=== PATIENT | male | born 1955 | race Caucasian/White ===

== ENCOUNTER → 2019-09-11 | Outpatient (CLI) | payer MEDICAID, MEDICARE | END | disposition home or self-care (01) | LOC: LABPAT 10:47 | PROVIDERS: ATTEND Orthopaedic Surgery | DX: Z01.812 Encounter for preprocedural laboratory examination (principal) | CPT/HCPCS: 87070 ==

== ENCOUNTER 2019-09-24 06:21 | Day surgery (SDC) | payer MEDICAID, MEDICARE ==
[2019-09-20 15:12] VITALS: BMI 31.4
--- NOTE | 2019-09-23 09:39 | HP ---
HISTORY AND PHYSICAL CHIEF COMPLAINT: Right knee pain. HISTORY OF PRESENT ILLNESS: The patient is a 64-year-old retired gentleman who presents with progressive right knee pain for the past couple years. It has worsened recently. He notes giving way along with swelling and stiffness. He has tried medications in addition to previous injections with only partial temporary relief. He notes he has been limping. PAST MEDICAL HISTORY: Significant for arthritis, hypertension, type 2 diabetes. PAST SURGICAL HISTORY: Significant for rotator cuff repair and cataract removal. CURRENT MEDICATIONS: 1. Clonidine. 2. Metoprolol. 3. Ranitidine. FAMILY HISTORY: Significant for cancer. SOCIAL HISTORY: Significant for chewing tobacco use. REVIEW OF SYSTEMS: Sixteen point review of systems otherwise reviewed and is noncontributory. PHYSICAL EXAMINATION: On examination, the patient is approximately 6 feet 2 inches, 230 pounds of endomorphic habitus. HEENT exam is nonfocal. Neck is supple. He has painless passive motion of the right hip. Straight leg raise is negative. Active motion right knee -12 to 115 degrees of flexion. He has a mild effusion. He is tender about the medial greater than lateral joint line. Collaterals are stable. Penelope's negative. Beba's is equivocal. His distal neurovascular exam appears intact except for stocking paresthesias bilaterally. Weightbearing notch lateral and Merchant views of the right knee obtained in the office show severe medial compartment narrowing. IMPRESSION: 1. Right knee severe medial compartment osteoarthrosis. 2. Pto-mrbtgqh-layyhjrvh diabetes. 3. History of renal disease. RECOMMENDATIONS: I talked to the patient at length regarding his condition along with treatment options. At this point, he remains quite symptomatic despite conservative measures. After thorough discussion, he opts to proceed with surgery. We will plan to proceed with right total knee arthroplasty. Risks and benefits were discussed at length in layman's terms. We will institute DVT prophylaxis postoperatively. The patient underwent preoperative medical evaluation by Dr. Briceno. SANA / ZACHERY: [id number] /
[~2019-09-24 06:21] MED LIST: ACETAMINOPHEN TAB 500 MG TAB PO ONE; DEXAMETHASONE SOD PHOSPHATE 10 MG/ML 1 ML VIAL IV ONE; HYDROmorphone 0.5 MG/0.5 ML SYRINGE IVP PRN; LIDOCAINE 1% 20 ML VIAL (10MG/ML) FOR IV START INTRADERMA PRN; MELOXICAM 7.5 MG TAB PO ONE; MIDAZOLAM 2 MG/2 ML VIAL IV PRN; ONDANSETRON 4 MG/2 ML VIAL IVP ONE; SCOPOLAMINE 1.5MG/72HR PATCH TRANSDERM ONE; TRANEXAMIC ACID 1,000 MG in SODIUM CHLORIDE 0.9% 100 ML IVPB ONE
[2019-09-24 07:11] LABS: Glucose,Whole Blood 161 mg/dL (75-99)
[2019-09-24] MEDS: LACTATED RINGERS 1,000 ML IV SCH (07:15)
[2019-09-24] MEDS ORDERED: TRANEXAMIC ACID 1,000 MG/10 ML VIAL ONE (08:13)
[2019-09-24] MEDS ORDERED: ePHEDrine SULFATE/0.9% NACL/PF 50 MG/5 ML SYRINGE IV ONE (08:13)
[2019-09-24] MEDS ORDERED: SODIUM CHLORIDE 0.9% 100 ML BAG ONE (08:13)
[2019-09-24] MEDS ORDERED: PROPOFOL 10 MG/ML 20 ML VIAL IV ONE (08:13)
[2019-09-24] MEDS ORDERED: fentaNYL (PF) 50 MCG/ML 2 ML AMP ONE (08:13)
[2019-09-24] MEDS ORDERED: MIDAZOLAM 2 MG/2 ML VIAL ONE (08:13)
[2019-09-24] MEDS ORDERED: ROPIVACAINE 246.25 MG, EPINEPHrine 0.5 MG, KETOROLAC 30 MG, cloNIDine HCL/PF 80 MCG, WA... MISCELLANE ONE ×5 (08:19)
[2019-09-24] MEDS ORDERED: ceFAZolin 3,000 MG in SODIUM CHLORIDE 0.9% IRRIGATIO 3,000 ML IRRIGATION ONE (08:52)
[2019-09-24] MEDS ORDERED: LACTATED RINGERS 1,000 ML IV ONE (09:18)
[2019-09-24] MEDS ORDERED: traMADol 50 MG TAB PO PRN (09:47)
[2019-09-24] MEDS ORDERED: HYDROmorphone 0.5 MG/0.5 ML SYRINGE IVP PRN (09:47)
[2019-09-24] MEDS ORDERED: ONDANSETRON 4 MG/2 ML VIAL IVP PRN (09:47)
[2019-09-24] MEDS ORDERED: ACETAMINOPHEN TAB 325 MG TAB PO PRN (09:47)
[2019-09-24] MEDS ORDERED: HYDROcodone/APAP 7.5-325MG 1 EACH TAB PO PRN ×2 (09:47→09:49)
[2019-09-24] MEDS ORDERED: MAGNESIUM HYDROXIDE 2,400 MG/10 ML CUP PO PRN (09:47)
[2019-09-24] MEDS ORDERED: NALOXONE 0.4 MG/ML 1 ML VIAL IV PRN (09:47)
--- NOTE | 2019-09-24 10:14 | P.OP ---
Date of Procedure: 09/24/19 Preoperative Diagnosis: Right knee severe tricompartmental osteoarthrosis Postoperative Diagnosis: Same Procedure(s) Performed: Right total knee arthroplastycementedcruciate retaining Implants: Depuy Attune size 8 cemented femoral component, size 8 cemented tibial component, 9 mm articular surface, 38 mm cemented patellar component. This was a cruciate retaining implant. Anesthesia: regional, local, spinal Surgeon: Andrew Fung Tool Design Draftsperson #1: Keyur Thompson Estimated Blood Loss (ml): 50 Pathology: other (Bone fragments) Condition: stable Disposition: PACU Indications for Procedure: The patient is a 64-year-old gentleman who presents with progressive right knee pain secondary to osteoarthrosis despite conservative measures. A discussion of the risks and benefits of operative intervention versus continued conservative measures was made with the patient. He opted to proceed with surgery. Operative risks to include infection, neurovascular injury, development of blood clots, possible component loosening, possible component failure and need for subsequent procedures was discussed. Informed consent was obtained. Operative Findings: As below Description of Procedure: The patient was brought to the operating room, and after induction of spinal anesthesia the right lower extremity was prepped and draped in a normal fashion. The tourniquet was inflated to 270 mmHg. A longitudinal incision extending 3 finger breaths above the superior pole of the patella extending to the medial aspect the tibial tubercle was then made. The skin and subcutaneous tissues were divided sharply. Electrocautery was used for hemostasis. A medial parapatellar arthrotomy was then performed. The medial soft tissues to include the superficial and deep portions of the medial collateral ligament as well as the medial hamstring tendons were elevated subperiosteally. The proximal medial tibia osteophytes were carefully removed. The patella was everted. The knee was flexed. A portion of the retropatellar fat pad was excised sharply. The anterior cruciate ligament was sacrificed. A starting hole was made in the distal femur 1 cm anterior to the posterior cruciate origin. An intramedullary femoral guide was gently inserted planning on 5 valgus distal cut with 9 mm distal resection. The cutting block was pinned in place. The distal cut was then made. The posterior referencing sizing guide was utilized. 3 of external rotation was built into the system and verified off the trans- epicondylar axis and the posterior condyles. I felt size 8 was most appropriate. The cutting block was pinned in place. The anterior, posterior, and chamfer cuts were then made. The bone fragments were removed. A sulcus cut was then made with the appropriate guide. The trial size 8 femoral component was then placed and was fully seated. There was good anterior to posterior and medial to lateral fit. The distal peg holes were then drilled. The trial c omponent was then removed. Attention was then paid towards preparing the proximal tibia. An extra medullary guide was utilized in line with the tibial shaft and second metatarsal distally. A 7 posterior slope was planned. I planned on 2 mm resection from the medial compartment. The cutting block was pinned in place. The proximal tibial cut was then made. The bone was removed in one fragment. The remnants of the medial and lateral menisci were excised the capsule junction with electrocautery. The tibia sized most appropriately at size 8. The posterior osteophytes off the distal femur were carefully removed with a curved osteotome. The trial tibial and femoral components were placed along with a 9 millimeters articular surface. I was able to obtain full flexion and extension with good stability with varus and valgus stress. After several flexion and extension cycles, the tibial rotation was marked with electrocautery in line with the medial one third of the tibial tubercle. Attention was then paid towards preparing the patella. A patella reamer was utilized taking this down to 14 mm of bone stock. A good flush cut was made. The patella sized most appropriately at 38 millimeters. The peg holes were then drilled. The trial component was placed. The knee was taken through a range of motion. I had good patellofemoral tracking with no hands technique. The trial components were then removed. The tibia was prepared in the appropriate rotation with appropriate drill and keel punch. The flexion and extension gaps were checked and felt to be symmetric. The posterior soft tissues were injected with ropivacaine. The bony surfaces were prepared with pulsatile lavage and dried. The deep tibial component was then cemented in place and was fully seated. Excess cement was removed. The femoral component was cemented in place and was fully seated. Again excess cement was removed. The trial 9 millimeters surface was then inserted in the knee was put in full extension. The patella component was cemented in place. After the cement had sufficiently hardened, the knee was again taken through a range of motion. Again there was good stability in flexion and extension with varus and valgus stress. The trial articular surface was then removed. The final articular surface was placed and was impacted. Care was taken to avoid any soft tissue interposition. Pulsatile lavage was again utilized. The tourniquet was deflated with approximately 60 minutes total tourniquet time. There was minimal drainage therefore a deep drain was not placed. The medial parapatellar arthrotomy was then closed with #2 Ethibond suture. The subcutaneous tissues were reapproximated interrupted 2-0 Vicryl sutures. The skin was reapproximated with 3-0 subarticular strata fix suture. Skin tape and adhesive was applied. A sterile dressing was applied. The patient was then awoken from sedation and transferred to recovery room in good condition. Blood loss was estimated at 50 milliliters. No complications were incurred. Sponge and needle counts were correct at the end the case. Carroll PHILLIPS assisted during the major components this case to include exposure, bone resection, and implantation.
[2019-09-24] MEDS ORDERED: ROPIVACAINE 0.2%-NS ON-Q PUMP 1,090 MG, EMPTY PAIN BALL 1 EACH MISCELLANE PRN (10:20)
--- NOTE | 2019-09-24 10:48 | XR ---
Limited right knee HISTORY: Status post right knee arthroplasty 2 views of the right knee Patient is status post right knee arthroplasty. Alignment is maintained. There are vascular calcifica tions noted. Lucencies present in the soft tissues. IMPRESSION: Orthopedic follow-up.
[2019-09-24 10:56] LABS: Glucose,Whole Blood 183 mg/dL (75-99)
--- NOTE | 2019-09-24 15:39 | P.CONS ---
History of Present Illness - Reason for Consult Consult date: 09/24/19 diabetes management Requesting physician: Andrew Fung - Chief Complaint right knee pain - History of Present Illness Patient is a 64-year-old male past medical history of hypertension, diabetes mellitus type 2 insulin requiring, arthritis, GERD, degenerative disc disease who presented to the hospital for elective right total knee arthroplasty. He had failed conservative management of his right knee pain. Patient seen and examined at bedside with family present. He denies any recent cough, cold, fever, flu, nausea vomiting, or shortness of breath. He typically takes insulin for his diabetes but states that his takes care of the dosing. He is currently not having any postoperative pain, shortness of breath, lightheadedness, dizziness, or chest pain. He is feeling well and wants to go home. Review of Systems Pertinent positives and negatives as discussed in HPI, a complete review of systems was performed and all other systems are negative. Past Medical History Past Medical History: Diabetes Mellitus, GERD/Reflux, Hypertension, Osteoarthritis (OA) Additional Past Medical History / Comment(s): "Toes feel cold," R/T DM. DDD in back. History of Any Multi-Drug Resistant Organisms: None Reported Past Surgical History: Orthopedic Surgery, Tonsillectomy Additional Past Surgical History / Comment(s): Rt shoulder rotator cuff. Colonoscopy. Jack Cataracts Past Anesthesia/Blood Transfusion Reactions: No Reported Reaction Past Psychological History: No Psychological Hx Reported Smoking Status: Former smoker Past Alcohol Use History: None Reported Additional Past Alcohol Use History / Comment(s): Sober for 3 years Past Drug Use History: None Reported Additional History: Chews tobacco, quit smoking 1996. Lives with his , no cane/walker prior to surgery - Past Family History Brother(s) Family Medical History: Cancer Additional Family Medical History / Comment(s): Colon CA Medications and Allergies Home Medications Medication Instructions Recorded Confirmed Type Aspirin [Adult Low Dose Aspirin EC] 81 mg PO DAILY 09/29/15 09/24/19 History Metoprolol Tartrate [Lopressor] 50 mg PO BID 09/29/15 09/24/19 History Naproxen Sodium [Aleve] 220 mg PO BID 09/29/15 09/24/19 History Ranitidine HCl 150 mg PO BID 09/29/15 09/24/19 History cloNIDine HCL [Catapres] 0.2 mg PO DAILY 09/29/15 09/24/19 History Glimepiride [Amaryl] 1 mg PO BID 08/24/17 09/24/19 History Insulin Lispro Protamin/Lispro 10 unit SQ AC-SUPPER 08/24/17 09/24/19 History [humaLOG Mix 75-25 Kwikpen] Hydrochlorothiazide [Hydrodiuril] 12.5 mg PO DAILY 09/20/19 09/24/19 History Insulin NPL/Insulin Lispro 20 unit SQ AC-BRKFST 09/20/19 09/24/19 History [humaLOG MIX 75-25 VIAL] Losartan Potassium [Cozaar] 100 mg PO DAILY 09/20/19 09/24/19 History [place]-3 Fatty Acids/Fish Oil [Fish 1 each PO DAILY 09/20/19 09/24/19 History Oil 1,000 mg Softgel] amLODIPine BESYLATE 5 mg PO DAILY 09/20/19 09/24/19 History Allergies Allergy/AdvReac Type Severity Reaction Status Date / Time No Known Allergies Allergy Verified 09/24/19 06:55 Physical Exam Osteopathic Statement: *. No significant issues noted on an osteopathic structural exam other than those noted in the History and Physical/Consult. Vitals: Vital Signs Temp Pulse Pulse Resp BP Pulse Ox 09/24/19 14:05 97.5 F L 80 17 123/77 91 L 09/24/19 13:15 78 16 123/80 97 09/24/19 12:45 42 L 16 119/80 97 09/24/19 12:00 78 16 130/80 97 09/24/19 11:30 74 16 109/72 96 09/24/19 10:53 72 15 112/73 97 09/24/19 10:38 72 14 117/75 100 09/24/19 10:23 71 16 116/78 100 09/24/19 10:08 97.0 F L 75 13 123/72 97 09/24/19 07:44 62 16 108/58 98 09/24/19 07:10 97.0 F L 62 16 128/80 96 Intake and Output 09/24/19 09/24/19 09/24/19 06:59 14:59 22:59 Intake Total 1851 Output Total 50 Balance 1801 Intake: IV 1851 Output: Estimated Blood Loss 50 Other: # Voids 0 Weight 110 kg General: non toxic, no distress, appears at stated age, obese Derm: no unusual rashes/lesions no unusual ecchymoses, warm, dry Head: atraumatic, normocephalic, symmetric Eyes: EOMI, no lid lag, anicteric sclera, pupils equal round reactive to light ENT: Nose and ears atraumatic, no thrush, no pharyngeal erythema Neck: No thyromegaly, no cervical lymphadenopathy, trachea midline, supple Mouth: no lip lesion, mucus membranes moist Cardiovascular: S1S2 reg, no murmur, positive posterior tibial pulse bilateral, no edema, capillary refill less than 2 seconds Lungs: CTA bilateral, no rhonchi, no rales , no accessory muscle use Abdominal: soft, nontender to palpation, no guarding, no appreciable organomegaly, normal bowel sounds Ext: right leg with dressing in place, no gross muscle atrophy, muscle strength 5 out of 5 in upper extremities grossly, no contractures, Neuro: CN II-XI grossly intact, light touch intact all 4 extremities, finger to nose within normal limits, Psych: Alert, oriented, appropriate affect Results Labs: Abnormal Lab Results - Last 24 Hours (Table) 09/24/19 09/24/19 Range/Units 07:10 10:49 POC Glucose (mg/dL) 161 H 183 H (75-99) mg/dL Assessment and Plan Assessment: Patient is a 64-year-old male status post right total knee arthroplasty. Pain management, PT/OT, DVT prophylaxis per ortho. DM 2, insuling requiring - hold amaryl - continue with 70/30, add SSI, follow BS - A1C 8.2 09/16/19 HTN - resume home lopressor, amlodipine and coaar - home HCTZ due t fluid shifts today adn resume in AM - COntinue with catapres to avoid rebound HTN GERD - Continue H2 teddy Obesity with BMI 30.7 - structured outpatient weight loss Thank you for allowing us to participate in the care of this pleasant patient. Do not hesitate to contact us with questions. Someone can be reached from the [facility] hospitalist group all hours of the day at [phone] or via perfect serve.
[2019-09-24 16:53] LABS: Glucose,Whole Blood 298 mg/dL (75-99)
[2019-09-24] MEDS: INSULIN ASPART (NovoLOG) 100 UNIT/ML VIAL SQ SCH (16:58)
[2019-09-24] MEDS ORDERED: INSULN ASP PRT/INSULIN ASPART 100 UNIT/ML 10 ML VIAL SQ SCH (17:30)
--- NOTE | 2019-09-24 20:29 | P.ANPRN ---
Procedure Note - Anesthesia - Nerve Block Performed Right Adductor Canal Infusion Time Out Performed: Yes Date of Procedure: 09/24/19 Procedure Start Time: :24 Procedure Stop Time: 07:33 Location of Patient: PreOp Indication: Acute Post-Operative Pain, Requested by Surgeon Sedation Type: Sedate with meaningful contact maintained Preparation: Sterile Prep, Sterile Dressing Position: Supine Catheter: Indwelling Needle Types: Pajunk Needle Gauge: 21 Ultrasound used to visualize needle placement: Yes Ultrasound used to observe medication spread: Yes Blood Aspirated: No Pain Paresthesia on Injection Noted: No Resistance on Injection: Normal Image Stored and Saved: Yes Events: Uneventful and Well Tolerated (ropi .5% 20cc plus dexamethasone 4mg)
[2019-09-24] MEDS: METOPROLOL TARTRATE 50 MG TAB PO SCH (20:36)
[2019-09-24] MEDS: FAMOTIDINE 20 MG TAB PO SCH (20:37)
[2019-09-24] MEDS ORDERED: SENNOSIDES-DOCUSATE SODIUM 1 EACH TAB PO SCH (21:00)
[2019-09-25] MEDS: LACTATED RINGERS 1,000 ML IV SCH (01:14)
[2019-09-25 01:16] LABS: Glucose,Whole Blood 412 mg/dL (75-99)
[2019-09-25] MEDS ORDERED: INSULIN ASPART (NovoLOG) 100 UNIT/ML VIAL SQ ONE (01:38)
--- NOTE | 2019-09-25 05:27 | P.PN ---
Progress Note - Text 09/25 64 year old male status post total knee replacement by Dr. Fung. Patient has an On-Q pump for postop pain control with the solution running at 8 mL an hour with a VAS of 8 and doing very well plan to continue On-Q pump infusion
[2019-09-25 06:48] LABS: Glucose,Whole Blood 258 mg/dL (75-99)
[2019-09-25] MEDS ORDERED: INSULN ASP PRT/INSULIN ASPART 100 UNIT/ML 10 ML VIAL SQ SCH (07:30)
[2019-09-25 07:41] LABS: Basophils % (A) 0 %; Eosinophils % (A) 0 %; HCT 38.6 % (39.0-53.0); Lymphocytes # (A) 1.5 k/uL (1.0-4.8); Lymphocytes % (A) 10 %; MCH 31.6 pg (25.0-35.0); MCHC 33.8 g/dL (31.0-37.0); MCV 93.7 fL (80.0-100.0); Mean Platelet Volume 8.8; Monocytes # (A) 0.8 k/uL (0-1.0); Monocytes % (A) 5 %; Neutrophils % (A) 84 %; Platelet Count 334 k/uL (150-450); RBC 4.12 m/uL (4.30-5.90); RDW 12.9 % (11.5-15.5); WBC 15.5 k/uL (3.8-10.6)
[2019-09-25 07:49] VITALS: BP 128/75; PULSE 61; RESP 16; TEMP 98.5
[2019-09-25] MEDS: INSULIN ASPART (NovoLOG) 100 UNIT/ML VIAL SQ SCH ×2 (07:52→12:26)
[2019-09-25] MEDS: METOPROLOL TARTRATE 50 MG TAB PO SCH (07:53)
[2019-09-25] MEDS: FAMOTIDINE 20 MG TAB PO SCH (07:54)
[2019-09-25] MEDS ORDERED: LOSARTAN 50 MG TAB PO SCH (09:00)
[2019-09-25] MEDS ORDERED: cloNIDine HCL 0.1 MG TAB PO SCH (09:00)
[2019-09-25] MEDS ORDERED: amLODIPine 5 MG TAB PO SCH (09:00)
[2019-09-25] MEDS ORDERED: RIVAROXABAN 10 MG TAB PO SCH (09:00)
[2019-09-25 11:40] LABS: Glucose,Whole Blood 344 mg/dL (75-99)
--- NOTE | 2019-09-25 12:07 | P.PN ---
Subjective Progress Note Date: 09/25/19 Principal diagnosis: status post right total knee arthroplasty patient evaluated at bedside, he is resting comfortably. His family members present. He is done well with therapy. Denies chest pain or shortness of breath. Objective - Vital Signs Vital signs: Vital Signs Temp 98.5 F 09/25/19 07:00 Pulse 61 09/25/19 07:00 Resp 16 09/25/19 07:00 BP 128/75 09/25/19 07:00 Pulse Ox 92 L 09/25/19 07:00 Intake & Output 09/24/19 09/25/19 09/25/19 18:59 06:59 18:59 Intake Total 1851 1660 180 Output Total 450 Balance 1401 1660 180 Weight 110 kg Intake: IV 1851 Intake, IV Titration 500 Amount Lactated Ringers 1,000 ml 500 @ 50 mls/hr IV .Q20H ANI Rx#:[id number] Oral 1160 180 Output: Urine 400 Estimated Blood Loss 50 Other: Voiding Method Urinal # Voids 0 1 - Exam right lower extremity: Incision is clean, dry, and intact. The exofin fusion tape is in good condition. There is minimal soft tissue swelling and ecchymosis surrounding the medial and lateral aspects of the incision. Calf is soft, no tenderness with palpation. Plantar flexion, dorsiflexion, EHL, FHL are intact. Sensory exam to light touch throughout the extremity is intact, dorsal pedis pulses 2+. - Labs CBC & Chem 7: 09/25/19 07:19 Labs: Abnormal Lab Results - Last 24 Hours (Table) 09/24/19 09/25/19 09/25/19 Range/Units 16:52 01:14 06:46 WBC (3.8-10.6) k/uL RBC (4.30-5.90) m/uL Hct (39.0-53.0) % Neutrophils # (1.3-7.7) k/uL POC Glucose (mg/dL) 298 H 412 H 258 H (75-99) mg/dL 09/25/19 09/25/19 Range/Units 07:19 11:38 WBC 15.5 H (3.8-10.6) k/uL RBC 4.12 L (4.30-5.90) m/uL Hct 38.6 L (39.0-53.0) % Neutrophils # 13.0 H (1.3-7.7) k/uL POC Glucose (mg/dL) 344 H (75-99) mg/dL Assessment and Plan Plan: Assessment: Postoperative day #1 status post right total knee arthroplasty Plan: Pain control, oral medication at discharge GI and DVT prophylaxis, Eliquis 2.5mg bid for 2 weeks Wound care instructions discussed Icing and elevating techniques discussed Medical recommendations Discharge planning: Patient will be discharged home today Time with Patient: Less than 30
--- NOTE | 2019-09-25 12:09 | P.DS ---
Providers Date of admission: 09/24/2019 Expected date of discharge: 09/25/19 Attending physician: Andrew Fung Consults: 09/24/19 09:47 Consult Physician Routine Consulting Provider: Yinka Briceno Reason/Comments: medical management Do you want consulting provider notified?: Yes Primary care physician: Yinka Briceno Hospital Course: Date of admission: 09/24/2019 Date of discharge: 09/25/2019 Admission diagnosis: Status post right total knee arthroplasty Discharge diagnosis: Same Attending physician: Dr. Fung Surgical procedures: Right total knee arthroplasty Brief history: Patient is a 64-year-old male with a history of is a primary right knee osteoarthritis. At this point patient has failed conservative treatment measures and has opted to proceed with a elective right total knee arthroplasty. Hospital course: Details of patient's surgery can be found in operative report. Patient tolerated the procedure well and was subsequently transported to orthopedic floor. Patient's orthopeidc and medical care was provided daily. Patient had daily laboratory tests performed for evaluation of overall blood counts. Patient had daily physical therapy to include strengthening range of motion as well as education with walker ambulation. Patient had daily CPM usage as part of their physical therapy program. Patient was treated with Xarelto for their postoperative DVT prophylaxis during their inpatient stay. Patient was noted to have a relatively uneventful postoperative course. Patient reported satisfactory pain control with oral pain medications by postoperative day 0. Patient showed satisfactory progress with physical therapy. Patient moved steadily through the program and had no difficulty meeting the goals by postoperative day 1. Given patient's otherwise satisfactory course and having met physical therapy goals, plan is to discharge patient home on postoperative day 1. Discharge condition/disposition: Patient will be discharged home in stable condition. Discharge medications: Instructions are given on resumption of patient's normal daily medications per primary care recommendation, in addition patient will be prescribed Heber 5 mg/325 mg, Colace 100 mg, Eliquis 2.5mg. Discharge instructions: 1. Wound care and infection precautions, keep incision dry and covered while showering, no lotions, creams, moisturizers. No soaking, tubs, pools, hottubs. Do not scrub over the incision. 2. Weight-bear as tolerated with walker / cane until follow-up. 3. Ice and elevate when necessary. Do not exceed 20 minutes per hour with ice pack. 4. Utilize compression sleeve until seen at first follow up appointment. 5. Visiting nursing care. 6. Home physical therapy including home CPM. 7. Pain meds and anticoagulants per prescription. 8. Pain medication has potential to cause constipation. Increase oral fluid and fiber intake. Contact primary care provider if you have not had a bowel movement within 48 hours after discharge 9. No anti-inflammatory medication until discussed at first post operative visit, this including Motrin, Aleve, Mobic, Diclofenac. 10. Follow up in office at 2 weeks postop with Carroll Thompson PA-C 11. Follow up with your primary care doctor 7-10 days after discharge. 12. Contact [facility] with any questions, . Procedures: Right total knee arthroplasty Patient Condition at Discharge: Good Plan - Discharge Summary Discharge Rx Participant: No New Discharge Prescriptions: New Docusate [Colace] 100 mg PO DAILY #30 capsule Apixaban [Eliquis] 2.5 mg PO BID #60 tab Hydrocodone/Acetaminophen [Heber 5-325] 1 each PO Q6HR PRN #28 tab PRN Reason: Pain Continue cloNIDine HCL [Catapres] 0.2 mg PO DAILY Metoprolol Tartrate [Lopressor] 50 mg PO BID Ranitidine HCl 150 mg PO BID Aspirin [Adult Low Dose Aspirin EC] 81 mg PO DAILY Glimepiride [Amaryl] 1 mg PO BID amLODIPine BESYLATE 5 mg PO DAILY Hydrochlorothiazide [Hydrodiuril] 12.5 mg PO DAILY Insulin NPL/Insulin Lispro [humaLOG MIX 75-25 VIAL] 20 unit SQ AC-BRKFST Losartan Potassium [Cozaar] 100 mg PO DAILY [place]-3 Fatty Acids/Fish Oil [Fish Oil 1,000 mg Softgel] 1 each PO DAILY Changed Insulin Lispro Protamin/Lispro [humaLOG Mix 75-25 Kwikpen] 14 unit SQ AC- SUPPER #0 No Action Naproxen Sodium [Aleve] 220 mg PO BID Discharge Medication List Aspirin [Adult Low Dose Aspirin EC] 81 mg PO DAILY 09/29/15 [History] Metoprolol Tartrate [Lopressor] 50 mg PO BID 09/29/15 [History] Naproxen Sodium [Aleve] 220 mg PO BID 09/29/15 [History] Ranitidine HCl 150 mg PO BID 09/29/15 [History] cloNIDine HCL [Catapres] 0.2 mg PO DAILY 09/29/15 [History] Glimepiride [Amaryl] 1 mg PO BID 08/24/17 [History] Hydrochlorothiazide [Hydrodiuril] 12.5 mg PO DAILY 09/20/19 [History] Insulin NPL/Insulin Lispro [humaLOG MIX 75-25 VIAL] 20 unit SQ AC-BRKFST 09/20/19 [History] Losartan Potassium [Cozaar] 100 mg PO DAILY 09/20/19 [History] [place]-3 Fatty Acids/Fish Oil [Fish Oil 1,000 mg Softgel] 1 each PO DAILY 09/20/19 [History] amLODIPine BESYLATE 5 mg PO DAILY 09/20/19 [History] Apixaban [Eliquis] 2.5 mg PO BID #60 tab 09/25/19 [Rx] Docusate [Colace] 100 mg PO DAILY #30 capsule 09/25/19 [Rx] Hydrocodone/Acetaminophen [Heber 5-325] 1 each PO Q6HR PRN #28 tab 09/25/19 [Rx] Insulin Lispro Protamin/Lispro [humaLOG Mix 75-25 Kwikpen] 14 unit SQ AC-SUPPER #0 09/25/19 [Rx] Follow up Appointment(s)/Referral(s): Yinka Briceno MD [Primary Care Provider] - 09/30/19 3:15 pm [facility], [NON-STAFF] - As Needed [facility]Equipment [NON-STAFF] - As Needed (Continuous Passive Motion knee machine and walker) Keyur Thompson PAC [PHYSICIAN SALES AND MARKETING REPRESENTATIVE] - 10/16/19 3:20 pm Patient Instructions/Handouts: Meal Planning with Diabetes Exchanges (DC) Activity/Diet/Wound Care/Special Instructions: Orthopedic Discharge Instructions: 1. Wound care and infection precautions, keep incision dry and covered while showering, no lotions, creams, moisturizers. No soaking, pools, hot tubs. Do not scrub over incision. 2. Weight-bear as tolerated with walker / cane until follow-up. 3. Ice and elevate when necessary. Do not exceed 20 minutes per hour with ice pack. 4. Utilize compression sleeve until seen at first follow up appointment. 5. Pain meds and anticoagulants per prescription. 6. Pain medication has potential to cause constipation. Increase oral fluid and fiber intake. Contact primary care provider if you have not had a bowel movement within 48 hours after discharge. 7. No anti-inflammatory medication until discussed at first post operative visit, this including Motrin, Aleve, Mobic, Diclofenac. 8. Follow up in office at 2 weeks postop with Carroll Thompson PA-C 9. Follow up with your primary care doctor 7-10 days after discharge. 10. Contact [facility] with any questions, . Discharge Disposition: HOME WITH HOME HEALTH SERVICES
--- NOTE | 2019-09-25 20:35 | P.PN ---
Subjective Progress Note Date: 09/25/19 (delayed charting seen at 1115) Principal diagnosis: knee pain Patient is a 64-year-old male past medical history of hypertension, diabetes mellitus type 2 insulin requiring, arthritis, GERD, degenerative disc disease who presented to the hospital for elective right total knee arthroplasty. He had failed conservative management of his right knee pain. Hyperglycemic overnight. Discussed with patient that he needs better control blood sugars during his p ostoperative period. Suggested increasing his night time 70/30 to 14 units. Patient, family, and was apprehensive. Patient states (oral medications only. Discussed with him the importance of following a diabetic diet closely, frequent small meals, and taking insulin as directed. We'll follow up with Dr. Briceno in the office. Discussed importance of weight loss Objective - Vital Signs Vital signs: Vital Signs Temp 98.5 F 09/25/19 07:00 Pulse 61 09/25/19 07:00 Resp 16 09/25/19 07:00 BP 128/75 09/25/19 07:00 Pulse Ox 92 L 09/25/19 07:00 Intake & Output 09/25/19 09/25/19 09/26/19 06:59 18:59 06:59 Intake Total 1660 420 Balance 1660 420 Intake: Intake, IV Titration 500 Amount Lactated Ringers 1,000 ml 500 @ 50 mls/hr IV .Q20H ANI Rx#:[id number] Oral 1160 420 Other: Voiding Method Urinal # Voids 1 - Exam General: non toxic, no distress, appears at stated age Derm: warm, dry Head: atraumatic, normocephalic, symmetric Eyes: EOMI, no lid lag, anicteric sclera Cardiovascular: S1S2 reg, no murmur, positive posterior tibial pulse bilateral, Lungs: CTA bilateral, no rhonchi, no rales , no accessory muscle use Abdominal: soft, nontender to palpation, no guarding, no appreciable organomegaly Ext: no gross muscle atrophy, no edema, no contractures Psych: Alert, oriented, appropriate affect - Labs CBC & Chem 7: 09/25/19 07:19 Labs: Abnormal Lab Results - Last 24 Hours (Table) 09/25/19 09/25/19 09/25/19 Range/Units 01:14 06:46 07:19 WBC 15.5 H (3.8-10.6) k/uL RBC 4.12 L (4.30-5.90) m/uL Hct 38.6 L (39.0-53.0) % Neutrophils # 13.0 H (1.3-7.7) k/uL POC Glucose (mg/dL) 412 H 258 H (75-99) mg/dL 09/25/19 Range/Units 11:38 WBC (3.8-10.6) k/uL RBC (4.30-5.90) m/uL Hct (39.0-53.0) % Neutrophils # (1.3-7.7) k/uL POC Glucose (mg/dL) 344 H (75-99) mg/dL Assessment and Plan Assessment: Patient is a 64-year-old male status post right total knee arthroplasty. Pain management, PT/OT, DVT prophylaxis per ortho. DM 2, insuling requiring with hyperglycemia - resume amryl louis discharge - continue with 70/30 inc- A1C 8.2 09/16/19 HTN - lopressor, amlodipine, HCTZ, catapres, and coaar GERD - Continue H2 teddy Obesity with BMI 30.7 - structured outpatient weight loss Medically optimized for discharge Thank you for allowing us to participate in the care of this pleasant patient. Do not hesitate to contact us with questions. Someone can be reached from the [facility] hospitalist group all hours of the day at [phone] or via perfect serve.
== END 2019-09-25 13:11 | disposition home health service (06) ==
LOC: OR 06:21 → 4SSUR 09:49 → OR 09-25 13:11
PROVIDERS: ATTEND Orthopaedic Surgery
DX: M17.11 Unilateral primary osteoarthritis, right knee (principal); I10 Essential (primary) hypertension; K21.9 Gastro-esophageal reflux disease without esophagitis; E11.65 Type 2 diabetes mellitus with hyperglycemia; E66.9 Obesity, unspecified; N40.0 Benign prostatic hyperplasia without lower urinary tract symptoms; E78.5 Hyperlipidemia, unspecified; F17.220 Nicotine dependence, chewing tobacco, uncomplicated; Z68.30 Body mass index [BMI] 30.0-30.9, adult; Z90.89 Acquired absence of other organs; Z98.41 Cataract extraction status, right eye; Z98.42 Cataract extraction status, left eye; Z80.0 Family history of malignant neoplasm of digestive organs; Z79.82 Long term (current) use of aspirin; Z79.4 Long term (current) use of insulin; Z79.899 Other long term (current) drug therapy; Z83.3 Family history of diabetes mellitus; Z82.49 Family history of ischemic heart disease and other diseases of the circulatory system
CPT/HCPCS: 97116; 97161; 64448; 76942; 85025; 88300; 73560; 27447; C1713; C1776; J2250; J0171; J1100; J0690 ×2; J2405; J3010; J1885; J2795 ×2; J2704; J0735

== ENCOUNTER → 2021-03-04 | Outpatient (CLI) | payer MEDICARE ==
--- NOTE | 2021-03-04 10:52 | US ---
EXAMINATION TYPE: US duplex aorta DATE OF EXAM: 03/04/2021 COMPARISON: NONE CLINICAL HISTORY: Z13.6 screening for AAA. HTN controlled with meds. EXAM MEASUREMENTS: Abdominal Aorta: Proximal: 2.0 x 2.4 cm Mid: 1.9 x 2.3 cm Distal: 2.0 x 2.4 cm Bifurcation: Right- 0.8 x 1.2 cm Left- 0.7 x 1.2 cm No AAA visualized at time of scan. IMPRESSION: 1. No evidence of abdominal aortic aneurysm.
== END | disposition home or self-care (01) ==
LOC: RADUSWWP 08:04
PROVIDERS: ATTEND Family Medicine
DX: Z13.6 Encounter for screening for cardiovascular disorders (principal); I10 Essential (primary) hypertension
CPT/HCPCS: 93979

== ENCOUNTER → 2021-05-18 | Outpatient (CLI) | payer MEDICARE ==
--- NOTE | 2021-05-18 17:19 | XR ---
Thoracic spine HISTORY:M54.6 Frontal and lateral views of the thoracic spine submitted on 4 images or graph no comparisons There is multilevel spondylosis. There is a gentle spinal curvature. Thoracic vertebral bodies show p reserved height. Bone mineralization is maintained. There is multilevel spondylosis. Some loss of dis c height present at intervertebral levels. IMPRESSION: Degenerative disc disease. Mild spinal curvature.
== END | disposition home or self-care (01) ==
LOC: RADXRMAIN 09:46
PROVIDERS: ATTEND Family Medicine
DX: M51.34 Other intervertebral disc degeneration, thoracic region (principal); M43.8X4 Other specified deforming dorsopathies, thoracic region
CPT/HCPCS: 72072

== ENCOUNTER → 2022-01-21 | Outpatient (CLI) | payer MEDICARE ==
--- NOTE | 2022-01-21 11:34 | XR ---
EXAM TYPE: LUMBAR SPINE X RAY SERIES COMPARISON: NONE HISTORY: Lower back pain TECHNIQUE: 4 views are submitted. FINDINGS: Alignment is anatomic. The pedicles are intact. The transverse processes are intact. There is a 3 mm right upper quadrant calcification likely related the renal pelvis patient. Findings are suggestiv e of a 3 cm abdominal aortic aneurysm. Multilevel degenerative disc disease and facet arthropathy wit h hypertrophic spurring. Most marked findings are seen at levels L3-S1. IMPRESSION: 1. Multilevel degenerative disc disease and facet arthropathy. 2. Findings suggestive of a 3 cm abdominal aortic aneurysm.
== END | disposition home or self-care (01) ==
LOC: RADXRMAIN 11:00
PROVIDERS: ATTEND Family Medicine
DX: M51.36 Other intervertebral disc degeneration, lumbar region (principal); M47.816 Spondylosis without myelopathy or radiculopathy, lumbar region
CPT/HCPCS: 72100